=== PATIENT | male | born 2000 | race Caucasian/White ===

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

== ENCOUNTER 2020-11-15 20:17 | Emergency (ER) | payer MEDICAID, SELFPAY ==
[2020-11-15 20:17] VITALS: BP 144/90; PULSE 107; RESP 16; TEMP 36.2; O2SAT 98
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
[2020-11-15 21:25] VITALS: PULSE 91; RESP 15; O2SAT 96
== END 2020-11-15 21:25 | disposition home or self-care (01) ==
PROVIDERS: Emergency Provider Emergency Medicine; PCP Pediatrics
DX: S80.12XA Contusion of left lower leg, initial encounter (principal); V43.62XA Car passenger injured in collision with other type car in traffic accident, initial encounter; Y93.9 Activity, unspecified; Y92.9 Unspecified place or not applicable; Y99.9 Unspecified external cause status
CPT/HCPCS: 73552; 73590; 99282

== ENCOUNTER 2022-09-11 12:38 | Emergency (ER) | payer MEDICAID, SELFPAY ==
[2022-09-11 12:38] VITALS: BP 160/119; PULSE 89; RESP 24; TEMP 35.9; O2SAT 100; BMI 26.9
--- NOTE | 2022-09-11 13:12 | EDS_ITS ---
HPI <INGRIS Mason - Last Filed: 09/11/22 13:52> History of Present Illness Chief Complaint: Laceration Narrative Narrative: Patient is a 22-year-old male with no significant history presents to the emergency department with left hand laceration. Patient was cutting food that was frozen with a knife, he slipped cutting himself on the palmar aspect of the hand just below the fifth digit. Patient has full range of motion of the hand. Patient's tetanus vaccination was 2 to 3 years ago. Patient denies any difficulty moving his hand. Bleeding is controlled on arrival. PFSH <INGRIS Mason - Last Filed: 09/11/22 13:52> [facility] Medical History no medical history Home Medications NK 11/15/20 [History Last Taken Unknown] Allergy/AdvReac Type Severity Reaction Status Date / Time venom-honey bee Allergy Anaphylaxis Verified 09/11/22 12:40 [bee venom (honey bee)] Family History no significant family his Surgical History no surgical history Social History Smoking Status: Never smoker ROS <INGRIS Mason - Last Filed: 09/11/22 13:52> ROS ED ROS Narrative Constitutional: Negative for fever, chills, weight loss, weakness Eyes: Negative for vision loss, vision change, double vision ENT: Negative for any sore throat, ear pain, congestion Cardiovascular: Negative for any chest pain, tightness, palpitations Respiratory: Negative for any cough, sputum production, hemoptysis, dyspnea, dyspnea on exertion, orthopnea Gastrointestinal: Negative for any abdominal pain, nausea, vomiting, diarrhea, constipation, blood in stool, blood in vomit : Negative for any urinary frequency, dysuria, retention, blood in urine Muscle skeletal: Negative for any muscle joint pain, stiffness, myalgias, arthralgias, neck pain, back pain. Positive for left hand pain Neurological: Negative for any headache, syncope, numbness or tingling, diz ziness Skin: Negative for any rashes, lumps, itching, abrasions,. For laceration left hand Psychiatric: Negative for any depression, anxiety, stress, suicidal ideation, homicidal ideation Hematologic: Negative for any easy bruising, excessive bruising, easy bleeding Allergies: Negative for any eczema, hives, rash EXAM <INGRIS Mason - Last Filed: 09/11/22 13:52> Physical Exam Narrative Exam Narrative: Vital signs reviewed. Extremities: No peripheral edema, no signs of gross trauma or deformity. Active full range of motion of all extremities. Patient is able to fully open and close his hand. The laceration is roughly 1.5 cm vertical on the palmar aspect is below the fifth digit. Patient has no neurological focal deficit. +2 radial pulse. Bleeding is controlled. No signs or symptoms of tendon involvement. Neuro: Cranial nerves II through XII intact, no focal neurological deficits. Skin: Clean dry and intact with no rash, purpura, petechiae, vesicles or pustules. Backs/flank: No CVA tenderness, no midline spinal tenderness, no deformity. Psych: Normal mood and affect. No SI, HI or acute psychosis. Const Vital Signs: 09/11/22 12:38 Temperature 96.6 F L Temperature Source Temporal Pulse Rate 89 Respiratory Rate 24 H Blood Pressure 160/119 H Blood Pressure Mean 132 Pulse Ox 100 Oxygen Delivery Method Room Air Positive well nourished and well developed General Appearance ED: well developed <Chaz Dickens MD - Last Filed: 09/11/22 20:52> Physical Exam Const Vital Signs: 09/11/22 12:38 Temperature 96.6 F L Temperature Source Temporal Pulse Rate 89 Respiratory Rate 24 H Blood Pressure 160/119 H Blood Pressure Mean 132 Pulse Ox 100 Oxygen Delivery Method Room Air PROC <INGRIS Mason - Last Filed: 09/11/22 13:52> Procedures Lacerations Hand laceration, 1.5 cm: Length: 0.59 in Depth: Skin Shape: Linear Prep: Sterile Conditions and Shure-Clens Laceration repair: Lidocaine Irrigated (ml): 200 Number of Sutures/Ca: 3 Suture Information: Ethilon Comment: Sterile gloves, sterile drapes were used. 3 simple interrupted sutures are used to close the wound. [facility] <INGRIS Mason - Last Filed: 09/11/22 13:52> MDM Treatment and Re-Evaluation Narrative: Patient appears generally well, patient appears nontoxic, vital signs are stable. Patient presents to the emergency department with complaints of a 1.5 cm laceration to the palm of the left hand. This was irrigated with saline, anesthetized. I did place 3 simple noted sutures of 4-0 Ethilon. Patient tolerated well. Tetanus vaccination is up-to-date per the patient. He will keep the area clean and dry. Have these removed in 10 to 12 days by his PCP or urgent care. Patient is happy with the plan of care, his brother was also in the room and he was given instructions as well. Consider an x-ray of the left hand however the laceration was superficial, there is no evidence to suspect any osseous abnormality. There is no tendon involvement. Patient stable for discharge <Chaz Dickens MD - Last Filed: 09/11/22 20:52> MDM MDM Narrative Medical decision making narrative: I have personally performed a face to face assessment of the patient and have reviewed the ERMIAS Note. I performed a substantive portion of the visit including all aspects of the following. My mcknight findings include: History is laceration to palm of left hand, no other injury. Exam is 1.5 cm laceration to palm of left hand, base of fourth digit. Full range of motion of fingers. No active bleeding. Medical Decision Making laceration repair. Discharge. Other additions or changes: [None] Discharge Plan Triage Chief Complaint: Laceration ED Midlevel Provider: Cristiano Rodriugez ED Provider: Chaz Dickens Dx/Rx/DC Orders Clinical Impression: Hand laceration Instructions: ED Laceration Hand with ... Prescriptions: No Action NK Primary Care Provider: Care Physician,No Primary Referrals: Natasha Alicia MD [Non-Staff] - Activity Restrictions/Additional Instructions: Have sutures removed in 10 to 12 days. Disposition Disposition: Home, Self Care Discharge Date/Time: 09/11/22 13:58
[2022-09-11] MEDS: Lidocaine 1% (20 ml mdv) 20 ML Vial 3 ML INFILT (13:27)
== END 2022-09-11 13:58 | disposition home or self-care (01) ==
PROVIDERS: Emergency Provider Emergency Medicine; Visit Provider Emergency Medicine
DX: S61.412A Laceration without foreign body of left hand, initial encounter (principal); W26.0XXA Contact with knife, initial encounter; Y93.G3 Activity, cooking and baking
CPT/HCPCS: 12001; 99282